=== PATIENT | male | born 1945 | race Caucasian/White ===

== ENCOUNTER 2022-04-06 11:39 | Day surgery (SDC) | payer MEDICARE ==
[~2022-04-06 11:39] MED LIST: AMLODIPINE BESY10 MG PO; ASPIRIN 81 LOW81 MG PO; HYDROCHLOROT25 MG PO; OLMESARTAN MEDO40 MG PO; PRILOSEC20 MG/CAP PO
[2022-04-06 13:12] VITALS: BP 123/79
== END 2022-04-06 13:40 | disposition home or self-care (01) ==
LOC: ENDO 11:39 → ORM 15:10
PROVIDERS: ATTEND Internal Medicine Gastroenterology
PROC: 0DJD8ZZ Inspection of Lower Intestinal Tract, Via Natural or Artificial Opening Endoscopic (ICD-10-PCS; principal; 2022-04-06)
PROC: 0DB48ZX Excision of Esophagogastric Junction, Via Natural or Artificial Opening Endoscopic, Diagnostic (ICD-10-PCS; 2022-04-06)
PROC: 0DB78ZX Excision of Stomach, Pylorus, Via Natural or Artificial Opening Endoscopic, Diagnostic (ICD-10-PCS; 2022-04-06)
PROC: 0DB68ZX Excision of Stomach, Via Natural or Artificial Opening Endoscopic, Diagnostic (ICD-10-PCS; 2022-04-06)
DX: K57.30 Diverticulosis of large intestine without perforation or abscess without bleeding (principal); K64.8 Other hemorrhoids; K22.70 Barrett's esophagus without dysplasia; K29.70 Gastritis, unspecified, without bleeding; K44.9 Diaphragmatic hernia without obstruction or gangrene; K31.7 Polyp of stomach and duodenum; K21.00 Gastro-esophageal reflux disease with esophagitis, without bleeding; Z85.038 Personal history of other malignant neoplasm of large intestine; Z90.49 Acquired absence of other specified parts of digestive tract; Z92.21 Personal history of antineoplastic chemotherapy; Z80.0 Family history of malignant neoplasm of digestive organs